=== PATIENT | male | born 1980 | race Caucasian/White ===

== ENCOUNTER 2022-03-02 04:18 | Emergency (ER) | payer MEDICAID ==
[~2022-03-02] VITALS: Ht 182.9 cm; Wt 66.7 kg
[2022-03-02 05:18] LABS: CLARITY,URINE SLIGHTLY CLOUDY (Clear); COLOR,URINE YELLOW (Yellow); GLUCOSE, URINE NEGATIVE (Neg); KETONES,URINE NEGATIVE (Neg); LEUKOCYTE ESTERASE ,URINE NEGATIVE (Neg); NITRITES, URINE NEGATIVE (Neg); OCCULT BLOOD,URINE TRACE-INTACT (Neg); PROTEIN,URINE TRACE mg/dl (Neg)
[2022-03-02 05:47] LABS: UA COLLECTION TYPE CLN CATCH MIDSTREAM
[2022-03-02 05:49] LABS: WBC,URINE 50-100 /HPF (0-4)
[2022-03-02 05:50] LABS: BACTERIA,URINE FEW /HPF (Neg); MUCUS STRANDS MODERATE /LPF (Neg); RBC,URINE 0-2 /HPF (0-2); SQUAMOUS EPITHELIAL CELL,UR MODERATE /LPF (FEW); WBC CLUMPS,URINE FEW /HPF (NEGATIVE)
[2022-03-02] MEDS ORDERED: metroNIDAZOLE 500mg tablet PO ONE (06:00)
[2022-03-02] MEDS ORDERED: azithromycin 250mg tablet PO ONE (06:00)
[2022-03-02 06:12] VITALS: BP 122/82
== END 2022-03-02 06:14 | disposition home or self-care (01) ==
LOC: ER 04:18
DX: Z11.3 Encounter for screening for infections with a predominantly sexual mode of transmission (principal); F17.200 Nicotine dependence, unspecified, uncomplicated
CPT/HCPCS: 36415; 81001; 87088; 87491; 99283

== ENCOUNTER 2022-03-02 22:59 | Emergency (ER) | payer MEDICAID ==
[~2022-03-02] VITALS: Ht 182.9 cm; Wt 66.7 kg
[2022-03-02] MEDS ORDERED: ondansetron/PF 4mg/2ml inj IV ONE (23:15)
[2022-03-02] MEDS ORDERED: ketorolac trometh. 30mg/ml inj. IV ONE (23:15)
[2022-03-02] MEDS ORDERED: morphine 4 MG/ML inj SYRINge IV ONE (23:15)
[2022-03-02] MEDS ORDERED: propofol 10mg/ml 20ml vial IV ONE (23:45)
--- NOTE | 2022-03-03 00:32 | NUR ---
DISCUSSED PT'S HR AND BP PRIOR TO ADMINISTERING MEDS. HE OKAY'D DC OF TORADOL PT WAS ALREADY GIVEN TORADOL A LITTLE EARLIER TODAY.
--- NOTE | 2022-03-03 00:48 | NUR ---
PAGED RT FOR MODERATE SEDATION
--- NOTE | 2022-03-03 03:00 | NUR ---
CASE NUMBER FOR PT IS [id number]
[2022-03-03 03:50] VITALS: BP 110/73
== END 2022-03-03 03:58 | disposition home or self-care (01) ==
LOC: ER 23:00
DX: S43.004A Unspecified dislocation of right shoulder joint, initial encounter (principal); X58.XXXA Exposure to other specified factors, initial encounter; Y93.89 Activity, other specified; Y92.89 Other specified places as the place of occurrence of the external cause; Y99.8 Other external cause status
CPT/HCPCS: 23650; 73020; 73030; 96374; 96375; 99285; J2270; J2405; 94760; A4565

== ENCOUNTER 2025-06-10 16:21 | Emergency (ER) | payer MEDICAID ==
[~2025-06-10] VITALS: Ht 182.9 cm; Wt 68.0 kg
[2025-06-10] MEDS ORDERED: TRAZ-251 PO (17:41)
--- NOTE | 2025-06-10 18:12 | Physician Documentation ---
History of Present Illness ~ Chief Complaint: Abrasion Stated Complaint: ARM INFECTION Time Seen by MD: 17:43 Primary Medical Doctor: MIKE GUZMAN IN [facility] Source: patient Mode of Arrival: POV Exam Limitations: no limitations HPI This is a 44-year-old male who comes in complaining of a painful lesion to the dorsum of the right forearm. He has had this for the past couple of days. He denies discharge from the area. Denies fever or chills. He says he has had these in the past. Medication Reconciliation Allergies: Coded Allergies: No Known Allergies (Unverified , 06/10/25) Scheduled Trazodone HCl (Trazodone HCl), 0.5-2 TAB PO HS, (Reported) Past Medical History Past Medical History: No Pertinent History Past Surgical History: no surgical history Alcohol Use: None Drug Use: none Lives with: Family Lives In: Home Occupation: employed Physical Exam Vital Signs: Temperature: 98.0, Heart Rate: 107, Respiratory Rate: 14, BP: 131/71, Pulse Oximetry: 98, Weight: 68.000 Pulse Oximetry Reflects: adequate oxygenation General Appearance: alert, WD/WN, no apparent distress Extremities Inspection of the right forearm the patient has a solitary erythematous indurated lesion that has a central black head. It is very firm to palpation. No fluctuance. No expressible purulence. No ascending lymphangitis. No circumferential erythema or edema. Progress Results/Orders Results/Orders Vital Signs 06/10/25 16:31 Temp 98.0 Pulse 107 Resp 14 B/P (MAP) 131/71 Pulse Ox 98 Medical Decision Making Additional information obtaine: N/A Findings The patient has a solitary furuncle of the right forearm. It would probably a staph infection and/or early abscess. It does not appear to require incision and drainage of the time with the patient does not desire incision and drainage. I will prescribe Bactrim DS with the instructions take ibuprofen for discomfort and apply warm compresses to the area. If it does come to a head instructed drain you can return for incision and drainage otherwise follow up with the primary care physician for recheck in the next couple of days. Differential Dx:Considerations: Include: Abscess, Contact dermatitis Additional Comment Cutaneous abscess. Furuncle. Staph infection. Departure Disposition: 01 HOME / SELF CARE / HOMELESS Impression: Primary Impression: Cutaneous abscess Condition: Stable Discharge Instructions: Abscess, Care After Additional Instructions: Wash the area with antibacterial soap and water and take the antibiotics as prescribed. Ibuprofen for pain. Frequent warm compresses. If it needs to be drained you can return to the ER otherwise follow up with the primary care physician for recheck in the next couple of days. Referrals: NO PRIMARY CARE PROVIDER (PCP) Prescriptions Sulfamethoxazole/Trimethoprim (Bactrim Ds Tablet) 800 Mg-160 Mg Tablet 1 TAB PO Q12H for 10 Days, #20 TAB Prov: JEANNINE YEUNG 06/10/25 Chlorhexidine Gluconate (Chlorhexidine Gluconate) 4 % Liquid 1 APPLIC TOP DAILY for 2 Days, #237 ML 0 Refills DIRECTED Prov: JEANNINE YEUNG 06/10/25 Signature Scribe Signature: No scribe Attestation: The note accurately reflects work and decisions made by me.Jeannine ROBLES 06/10/25 18:13 JEANNINE YEUNG Jun 10, 2025 18:12
[2025-06-10] MEDS ORDERED: CHLO118L3 TOP (18:13)
[2025-06-10] MEDS ORDERED: SULF1TAB49 PO (18:13)
[2025-06-10 18:25] VITALS: BP 118/72; PULSE 96; RESP 18; TEMP 98.6; O2SAT 99
== END 2025-06-10 18:26 | disposition home or self-care (01) ==
LOC: ER 16:22
DX: L02.511 Cutaneous abscess of right hand (principal); Z79.899 Other long term (current) drug therapy
CPT/HCPCS: 99283

== ENCOUNTER 2025-06-19 10:06 | Emergency (ER) | payer MEDICAID ==
[~2025-06-19] VITALS: Ht 182.9 cm; Wt 68.8 kg
[~2025-06-19 10:06] MED LIST: CHLO118L3 TOP; SULF1TAB49 PO; TRAZ-251 PO
[2025-06-19 10:14] VITALS: BP 137/70; PULSE 89; RESP 18; O2SAT 98
--- NOTE | 2025-06-19 11:49 | Physician Documentation ---
HPI ~ General Chief Complaint: Medication Refill Stated Complaint: MED REQUEST Time Seen by MD: 10:21 Primary Medical Doctor: MIKE ASH[facility] History of Present Illness HPI Comments Is a very pleasant 44-year-old male that presents to the emergency department for evaluation of medication refill. Patient reports he was placed on a course of Bactrim for an abscess. Patient reports he was only part of the way through his prescription when his medications were knocked into the dishwater. Patient's wounds are improving with the antibiotics. Patient denies any other symptoms at this time. Medication Reconciliation Allergies: Coded Allergies: No Known Allergies (Unverified , 06/19/25) Scheduled Chlorhexidine Gluconate (Chlorhexidine Gluconate), 1 APPLIC TOP DAILY Sulfamethoxazole/Trimethoprim (Bactrim Ds Tablet), 1 TAB PO Q12H Trazodone HCl (Trazodone HCl), 0.5-2 TAB PO HS, (Reported) Past Medical History Past Medical History: No Pertinent History Past Surgical History: no surgical history Alcohol Use: None Drug Use: none Lives with: Family Lives In: Home Occupation: employed Review of Systems ROS As stated above in the HPI, otherwise all systems are reviewed and negative. Physical Exam Physical Exam Vital Signs: Temperature: 97.8, Source: Oral, Heart Rate: 89, Respiratory Rate: 18, BP: 137/70, Pulse Oximetry: 98, Weight: 68.800 Oxygen Flow Rate: 0 Physical Exam VITALS: Reviewed and as above. GENERAL: Alert, no apparent distress. SKIN: Warm and dry, no rash, abscess to the right wrist covered with a bandage, patient reports that wound is healing. NEURO: Oriented x4, No motor or sensory deficit PSYCH: Normal mood and affect, no agitation Progress Results/Orders Results/Orders Vital Signs 06/19/25 10:14 Temp 97.8 Pulse 89 Resp 18 B/P (MAP) 137/70 Pulse Ox 98 O2 Flow Rate 0 Medical Decision Making Additional information obtaine: old records, other, N/A Findings Is a very pleasant 44-year-old male that presents to the emergency department for evaluation of medication refill. Patient reports he was placed on a course of Bactrim for an abscess. Patient reports he was only part of the way through his prescription when his medications were knocked into the dishwater. Patient's wounds are improving with the antibiotics. Patient denies any other symptoms at this time. Differential Dx:Considerations: Include: Adverse circumstances, Economic, Psychosocial, Medical services unavail., Medication refill, Medication non- compliance, Other Departure Disposition: 01 HOME / SELF CARE / HOMELESS Impression: Primary Impression: General medical exam Discharge Instructions: Medicine Refill at the Emergency Department Additional Instructions: Is a very pleasant 44-year-old male that presents to the emergency department for evaluation of medication refill. Patient reports he was placed on a course of Bactrim for an abscess. Patient reports he was only part of the way through his prescription when his medications were knocked into the dishwater. Patient's wounds are improving with the antibiotics. Patient denies any other symptoms at this time. Referrals: NO PRIMARY CARE PROVIDER (PCP) Prescriptions Sulfamethoxazole/Trimethoprim (Bactrim Ds Tablet) 800 Mg-160 Mg Tablet 1 TAB PO Q12H for 10 Days, #20 TAB Prov: ABHISHEK SANTIAGO 06/19/25 Education Educated: Patient Educated regarding: diagnosis, treatment, need for follow up Signature Scribe Signature: A Attestation: Scribed for Abhishek Santiago by EARL Ochoa . 06/19/25 11:52 ABHISHEK SANTIAGO Jun 19, 2025 11:48
[2025-06-19] MEDS ORDERED: SULF1TAB49 PO (11:51)
[2025-06-19 12:02] VITALS: TEMP 97.8
== END 2025-06-19 12:03 | disposition home or self-care (01) ==
LOC: ER 10:07
DX: Z00.00 Encounter for general adult medical examination without abnormal findings (principal); Z76.0 Encounter for issue of repeat prescription; Z79.899 Other long term (current) drug therapy
CPT/HCPCS: 99282; A6449